=== PATIENT | female | born 1970 | race African-American/Black ===

== ENCOUNTER 2017-01-20 20:37 | Emergency (ER) | payer OTHER ==
[~2017-01-20] VITALS: Ht 162.6 cm; Wt 86.2 kg
[2017-01-20 20:40] VITALS: BP 131/88
[2017-01-20] MEDS ORDERED: HCTZ (20:43)
[2017-01-20] MEDS ORDERED: AMLODIPINE-ATO1 EAC4 PO (20:43)
[2017-01-20] MEDS ORDERED: VALSARTAN (20:43)
[2017-01-20] MEDS ORDERED: DIOVAN320 MG PO (20:44)
[2017-01-20] MEDS ORDERED: MOBIC7.5 MG PO (22:00)
[2017-01-20] MEDS ORDERED: ROBAXIN 750 MG750 M1 PO (22:00)
== END 2017-01-20 22:17 | disposition home or self-care (01) ==
LOC: ER 20:37
DX: S16.1XXA Strain of muscle, fascia and tendon at neck level, initial encounter (principal); S39.012A Strain of muscle, fascia and tendon of lower back, initial encounter; S80.02XA Contusion of left knee, initial encounter; R42 Dizziness and giddiness; F17.210 Nicotine dependence, cigarettes, uncomplicated; F10.99 Alcohol use, unspecified with unspecified alcohol-induced disorder; V89.2XXA Person injured in unspecified motor-vehicle accident, traffic, initial encounter; Y93.89 Activity, other specified; Y92.89 Other specified places as the place of occurrence of the external cause; Y99.8 Other external cause status